=== PATIENT | male | born 1990 | race Caucasian/White ===

== ENCOUNTER 2017-12-01 17:41 | Emergency (ER) | payer SELFPAY ==
[2017-12-01 17:48] VITALS: BP 145/86
--- NOTE | 2017-12-01 18:41 | ER Document Report ---
ED General - General Chief Complaint: Anxiety Stated Complaint: POSSIBLE ANXIETY Time Seen by Provider: 12/01/17 18:35 TRAVEL OUTSIDE OF THE [place] IN LAST 30 DAYS: No - HPI Patient complains to provider of: anxiety Notes: Patient presents to ER with request for OM to buy him a bus ticket to [facility] where his family is. Patient states he is homeless here after hitch hiking, getting caught stealing from [facility] and going to [facility]. Patient states he went to an ER in [place] and they bought him a bus ticket to [facility] but now he is back here and wants to go to where his family is now located. Patient states she has numerous returned to cannot go to the homeless [facility] because he lost his ID therefore came to the ER for help denies fevers chills nausea vomiting diarrhea - Related Data Allergies/Adverse Reactions: amoxicillin Allergy (Verified 12/01/17 21:06) Past Medical History - Social History Smoking Status: Current Every Day Smoker Chew tobacco use (# tins/day): No Frequency of alcohol use: Occasional Drug Abuse: None Family History: Reviewed & Not Pertinent Patient has suicidal ideation: No Patient has homicidal ideation: No Renal/ Medical History: Denies: Hx Peritoneal Dialysis Past Surgical History: Reports: Hx Orthopedic Surgery - left knee Review of Systems - Review of Systems Constitutional: No symptoms reported EENT: No symptoms reported Cardiovascular: No symptoms reported Respiratory: No symptoms reported Gastrointestinal: No symptoms reported Genitourinary: No symptoms reported Male Genitourinary: No symptoms reported Musculoskeletal: No symptoms reported Skin: No symptoms reported Hematologic/Lymphatic: No symptoms reported Neurological/Psychological: Anxiety -: Yes All other systems reviewed and negative Physical Exam - Vital signs Vitals: Temp Pulse Resp BP Pulse Ox 98.1 F 117 H 18 145/86 H 100 12/01/17 17:47 12/01/17 17:47 12/01/17 17:47 12/01/17 17:47 12/01/17 17:47 Interpretation: Normal - General General appearance: Appears well, Alert - HEENT Head: Normocephalic, Atraumatic Eyes: Normal Pupils: PERRL - Respiratory Respiratory status: No respiratory distress Chest status: Nontender Breath sounds: Normal Chest palpation: Normal - Cardiovascular Rhythm: Regular Heart sounds: Normal auscultation Murmur: No - Abdominal Inspection: Normal Distension: No distension Bowel sounds: Normal Tenderness: Nontender Organomegaly: No organomegaly - Back Back: Normal, Nontender - Extremities General upper extremity: Normal inspection, Nontender, Normal color, Normal ROM , Normal temperature General lower extremity: Normal inspection, Nontender, Normal color, Normal ROM , Normal temperature, Normal weight bearing. No: Carleen's sign - Neurological Neuro grossly intact: Yes Cognition: Normal Orientation: AAOx4 Linda Coma Scale Eye Opening: Spontaneous [place] Coma Scale Verbal: Oriented Linda Coma Scale Motor: Obeys Commands Linda Coma Scale Total: 15 Speech: Normal Motor strength normal: LUE, RUE, LLE, RLE Sensory: Normal - Psychological Associated symptoms: Tearful - Skin Skin Temperature: Warm Skin Moisture: Dry Skin Color: Normal Course - Re-evaluation Re-evalutation: 12/01/17 21:38 Physical examination does not reveal any critical pathology. Patient was evaluated by our social team will have mobile crisis, and for assist the patient and his needs no emergent conditions presentness of at this time patient was discharged - Vital Signs Vital signs: Temp Pulse Resp BP Pulse Ox 98.1 F 117 H 18 145/86 H 100 12/01/17 17:47 12/01/17 17:47 12/01/17 17:47 12/01/17 17:47 12/01/17 17:47 Discharge - Discharge Clinical Impression: Homelessness, Anxiety Condition: Good Disposition: HOME, SELF-CARE Instructions: Anxiety ([facility]) Additional Instructions: Please follow-up with resources provided. Return to the ER for any other concern
[2017-12-01] MEDS ORDERED: HYDROXYZINE PAMOATE 25 MG CAPSULE (4 CAP/ER DISP) PO SCH (22:00)
== END 2017-12-01 18:57 | disposition home or self-care (01) ==
LOC: EDBD → ER 17:41
DX: F41.9 Anxiety disorder, unspecified (principal); F17.200 Nicotine dependence, unspecified, uncomplicated; Z59.0 Homelessness
CPT/HCPCS: 99283

== ENCOUNTER 2017-12-01 21:05 | Emergency (ER) | payer SELFPAY ==
[2017-12-01 21:27] VITALS: BP 119/68
--- NOTE | 2017-12-01 23:42 | ER Document Report ---
HPI - HPI Pain Level: Denies Notes: Patient is a 27-year-old male, currently homeless, who presents to the ED because he is nowhere else to go and was evaluated in the emergency department earlier today. He has no new concerns or complaints. Patient was cleared at that time by Dr. Lu and had our social team discuss with him about resources. Patient had presented requesting a bus ticket originally to go back to [place] where his family is. Patient states he did spend some time in [place] and went to an ER there Sara was taken to [facility], but he does want to return to where his family is. He has no SI/HI. No other concerns or complaints at this time. No visual or auditory hallucinations. Denies any headache, fever, head injury, neck pain, changes in vision/speech/ mentation/hearing, URI, sore throat, chest pain, palpitations, syncope, cough, shortness of breath, wheeze, dyspnea, abdominal pain, nausea/vomiting/diarrhea, urinary retention, dysuria, hematuria, loss of control of bowel or bladder, numbness/tingling, saddle anesthesia, muscle paralysis/weakness, or rash. - ROS Systems Reviewed and Negative: Yes All other systems reviewed and negative Past Medical History - Social History Smoking Status: Unknown if Ever Smoked Family History: Reviewed & Not Pertinent Renal/ Medical History: Denies: Hx Peritoneal Dialysis Past Surgical History: Reports: Hx Orthopedic Surgery - left knee Vertical Provider Document - CONSTITUTIONAL Agree With Documented VS: Yes Notes: PHYSICAL EXAMINATION: GENERAL: Well-appearing, well-nourished and in no acute distress. HEAD: Atraumatic, normocephalic. EYES: Pupils equal round and reactive to light, extraocular movements intact, sclera anicteric, conjunctiva are normal. ENT: Nares patent and without discharge. oropharynx clear without exudates. No tonsilar hypertrophy or erythema. Moist mucous membranes. NECK: Normal range of motion, supple without lymphadenopathy LUNGS: Breath sounds clear to auscultation bilaterally and equal. No wheezes rales or rhonchi. HEART: Regular rate and rhythm without murmurs, rubs, gallops. ABDOMEN: Soft, nontender, nondistended abdomen. No guarding, no rebound. No masses appreciated. Normal bowel sounds present. No CVA tenderness bilaterally. Musculoskeletal: FROM to passive/active. Strength 5+/5. Extremities: No cyanosis, clubbing, or edema b/l. Peripheral pulses 2+. Capillary refill less than 3 seconds. NEUROLOGICAL: Cranial nerves grossly intact. Normal speech, normal gait. Normal sensory, motor exams PSYCH: Normal mood, normal affect. SKIN: Warm, Dry, normal turgor, no rashes or lesions noted. - INFECTION CONTROL TRAVEL OUTSIDE OF THE [place] IN LAST 30 DAYS: No Course - Re-evaluation Re-evalutation: 12/02/17 00:18 Patient is an afebrile, well-hydrated, 27-year-old male who presents to the ED for a worried well visit as he had nowhere else to go. Vitals are acceptable without any significant tachycardia, tachypnea, or hypoxia. PE is otherwise unremarkable. Patient has no new concerns or complaints. He does have an appointment with social work in the morning at 9 AM. No labs or imaging warranted at this time based on H&P. I did review with patient that at this time he is able to stay in our waiting room for the next 8-1/2 hours until his appointment, but he cannot remain within the room as he will be discharged. Keep scheduled appointment in the morning with social work. Return to the ED otherwise with any other worsening/concerning symptoms as needed. Patient is in agreement. - Vital Signs Vital signs: Temp Pulse Resp BP Pulse Ox 97.5 F 97 16 119/68 100 12/01/17 21:24 12/01/17 21:24 12/01/17 21:24 12/01/17 21:24 12/01/17 21:24 Discharge - Discharge Clinical Impression: Worried well Condition: Stable Disposition: HOME, SELF-CARE Additional Instructions: Keep consult with case management social worker in the morning for further guidance. Return to the ED with any worsening symptoms and/or development of fever, headache, chest pain, palpitations, syncope, shortness of breath, trouble breathing, abdominal pain, n/v/d, blood in stool/urine, loss of control of bowel /bladder, urinary retention, muscle weakness/paralysis, saddle anesthesia, numbness/tingling, or other worsening symptoms that are concerning to you. Referrals: [facility] [Provider Group] - Follow up as needed
== END 2017-12-02 00:46 | disposition home or self-care (01) ==
LOC: ER 21:05
DX: Z71.1 Person with feared health complaint in whom no diagnosis is made (principal); Z59.0 Homelessness
CPT/HCPCS: 99281